=== PATIENT | female | born 1985 | race African-American/Black ===

== ENCOUNTER 2021-09-17 01:22 | Emergency (ER) | payer SELFPAY ==
[~2021-09-17] VITALS: Ht 175.3 cm; Wt 104.3 kg
[2021-09-17] MEDS ORDERED: OXYC-133 PO ×2 (01:35→03:24)
[2021-09-17] MEDS ORDERED: ONDANSETRON 4 MG/2 ML VIAL IV ONE (01:45)
[2021-09-17] MEDS ORDERED: HYDROMORPHONE 1 MG/1 ML DISP.SYRIN IV ONE (01:45)
[2021-09-17] MEDS ORDERED: IV NS 1000 ML 1,000 ML IV ONE (01:45)
[2021-09-17] MEDS ORDERED: ONDANSETRON 4 MG/2 ML VIAL ONE (01:47)
[2021-09-17] MEDS ORDERED: HYDROMORPHONE 2 MG/1 ML DISP.SYRIN ONE ×3 (01:47→03:10)
[2021-09-17] MEDS ORDERED: HYDROMORPHONE 1 MG/1 ML DISP.SYRIN IM ONE ×2 (02:30→03:15)
[2021-09-17] MEDS ORDERED: ONDANSETRON ODT 4 MG TAB.RAPDIS ONE (02:30)
[2021-09-17] MEDS ORDERED: ONDANSETRON ODT 4 MG TAB.RAPDIS SL ONE (02:30)
[2021-09-17] MEDS ORDERED: HYDR4TAB4 PO (03:10)
[2021-09-17] MEDS ORDERED: HYDR500C2 PO (03:10)
[2021-09-17] MEDS ORDERED: LORA-259 PO (03:16)
--- NOTE | 2021-09-17 03:29 | NUR ---
Patient discharged to home in stable condition. Written and verbal after care instructions given. Patient verbalizes understanding of instructions. Stressed follow up or return to ER for worsening s/s. Patient is a/ox4, NAD noted. Patient is able to walk with steady gait
[2021-09-17 03:30] VITALS: BP 128/79
[2021-09-17] MEDS ORDERED: ALPR2TAB7 PO (22:42)
== END 2021-09-17 03:30 | disposition home or self-care (01) ==
LOC: ER 01:29
DX: D57.00 Hb-SS disease with crisis, unspecified (principal)
CPT/HCPCS: 96372 ×2; 99284; J1170 ×3; A4663; J2405; J7040; Q0162

== ENCOUNTER 2021-09-17 20:12 | Emergency (ER) | payer SELFPAY ==
[~2021-09-17] VITALS: Ht 175.3 cm; Wt 104.3 kg
[~2021-09-17 20:12] MED LIST: HYDR4TAB4 PO; HYDR500C2 PO; LORA-259 PO; OXYC-133 PO
--- NOTE | 2021-09-17 21:34 | NUR ---
AFTER BEING TRIAGED, PATIENT WAS PLACED BACK TO WAITING ROOM DUE TO NO BEDS AVAILABLE IN THE ER AT THIS TIME.
--- NOTE | 2021-09-17 22:27 | NUR ---
PATIENT WAS PLACED IN HALLWAY AT THIS TIME DUE TO NO BEDS AVAIALBLE.
[2021-09-17] MEDS ORDERED: ALPR2TAB7 PO (22:42)
--- NOTE | 2021-09-17 22:50 | NUR ---
Patient discharged to home in stable condition. Written and verbal after care instructions given. Patient verbalizes understanding of instructions. Stressed follow up or return to ER for worsening s/s.
[2021-09-17 22:56] VITALS: BP 122/78
== END 2021-09-17 22:50 | disposition home or self-care (01) ==
LOC: ER 20:20
DX: F41.9 Anxiety disorder, unspecified (principal); Z76.0 Encounter for issue of repeat prescription; G47.00 Insomnia, unspecified; F13.20 Sedative, hypnotic or anxiolytic dependence, uncomplicated; Z88.8 Allergy status to other drugs, medicaments and biological substances; D57.1 Sickle-cell disease without crisis
CPT/HCPCS: A4663